=== PATIENT | female | born 1940 | race Caucasian/White ===

== ENCOUNTER → 2018-06-10 | Outpatient (REF) | payer MEDICARE, OTHER ==
[~2018-06-10] MED LIST: AMOXICILLIN875 MG OR; BACLOFEN10 MG PO; DICLOFENAC SODI75 MG PO; ESTRACE1 MG OR; NORCO1 TA1 PO; ROBITUSSIN AC10 ML PO; WELLBUTRI1 OR
== END | disposition home or self-care (01) ==
LOC: DI 11:53
PROVIDERS: ATTEND Physician Assistant Medical
DX: M25.561 Pain in right knee (principal)

== ENCOUNTER → 2018-06-22 | Outpatient (REF) | payer MEDICARE, OTHER | END | disposition home or self-care (01) | LOC: MAMMO 06-16 13:30 | PROVIDERS: ATTEND Physician Assistant Medical | DX: Z12.31 Encounter for screening mammogram for malignant neoplasm of breast (principal) ==

== ENCOUNTER 2022-09-17 10:26 | Emergency (ER) | payer MEDICARE, OTHER ==
[~2022-09-17] VITALS: Ht 165.1 cm; Wt 77.0 kg
[2022-09-17 14:25] VITALS: BP 164/71
== END 2022-09-17 15:00 | disposition home or self-care (01) ==
LOC: ED 10:26
PROC: 2W3QX1Z Immobilization of Right Lower Leg using Splint (ICD-10-PCS; principal; 2022-09-17)
DX: S92.351A Displaced fracture of fifth metatarsal bone, right foot, initial encounter for closed fracture (principal); S60.221A Contusion of right hand, initial encounter; W01.0XXA Fall on same level from slipping, tripping and stumbling without subsequent striking against object, initial encounter; Y92.238 Other place in hospital as the place of occurrence of the external cause